=== PATIENT | male | born 1965 | race American Indian/Alaskan Native ===

== ENCOUNTER 2019-07-21 09:27 | Emergency (ER) | payer BC ==
[2019-07-21] MEDS ORDERED: BUTALB/ACETAMINOPHEN/CAFFEINE TAB PO ONE (11:49)
[2019-07-21] MEDS ORDERED: predniSONE 20 MG TAB PO ONE (11:49)
--- NOTE | 2019-07-21 11:56 | Emergency Department Report ---
ED General Adult HPI - General Chief complaint: Headache Stated complaint: HEADACHE Time Seen by Provider: 07/21/19 11:17 Source: patient Mode of arrival: Ambulatory Limitations: No Limitations - History of Present Illness Initial comments: This is a 54-year-old male with no prior medical history presents the ED complaining of intermittent headaches for the past 2 weeks. Patient states that he did notice today here that his blood pressure was elevated. Patient states he regularly does not check his blood pressure so he is unsure. Patient is also stating that he takes Aleve for the headache which resolves it for couple of hours and it comes back. Patient denies any head injury. Patient does state he is under a lot more stress with work and usually works in a warehouse. He denies blurred vision, nausea vomiting, abdominal pain chest pain shortness of breath or any other symptoms - Related Data Previous Rx's Medication Instructions Recorded Last Taken Type Butalb/Acetamin/Caff 50-325-40 2 tab PO TID #30 tablet 07/21/19 Unknown Rx [Fioricet 50-325-40] Allergies Allergy/AdvReac Type Severity Reaction Status Date / Time No Known Allergies Allergy Unverified 07/21/19 09:28 ED Review of Systems ROS: Stated complaint: HEADACHE Other details as noted in HPI Comment: All other systems reviewed and negative ED Past Medical Hx - Past Medical History Previous Medical History?: No - Surgical History Past Surgical History?: No - Social History Smoking Status: Current Every Day Smoker Substance Use Type: Alcohol - Medications Home Medications: Home Medications Medication Instructions Recorded Confirmed Last Taken Type Butalb/Acetamin/Caff 50-325-40 2 tab PO TID #30 tablet 07/21/19 Unknown Rx [Fioricet 50-325-40] ED Physical Exam - General Limitations: No Limitations General appearance: alert, in no apparent distress - Head Head exam: Present: atraumatic, normocephalic - Eye Eye exam: Present: normal appearance, PERRL Pupils: Present: normal accommodation - ENT ENT exam: Present: mucous membranes moist - Neck Neck exam: Present: normal inspection - Respiratory Respiratory exam: Present: normal lung sounds bilaterally. Absent: respiratory distress, wheezes - Cardiovascular Cardiovascular Exam: Present: regular rate, normal rhythm. Absent: systolic murmur, diastolic murmur, rubs, gallop - GI/Abdominal GI/Abdominal exam: Present: soft, normal bowel sounds - Rectal Rectal exam: Present: deferred - Extremities Exam Extremities exam: Present: normal inspection - Back Exam Back exam: Present: normal inspection - Neurological Exam Neurological exam: Present: alert, oriented X3, CN II-XII intact, normal gait - Expanded Neurological Exam Expanded Patient oriented to: Present: person, place, time Speech: Present: fluid speech Cerebellar function: Finger to Nose: Normal Motor strength exam: RUE: 5, LUE: 5, RLE: 5, LLE: 5 Best Eye Response ([place]): (4) open spontaneously Best Motor Response ([place]): (6) obeys commands Best Verbal Response ([place]): (5) oriented [place] Total: 15 - Psychiatric Psychiatric exam: Present: normal affect, normal mood - Skin Skin exam: Present: warm, dry, intact, normal color. Absent: rash ED Course Vital Signs 07/21/19 07/21/19 07/21/19 09:30 09:31 11:45 Temperature 97.6 F 97.6 F Pulse Rate 84 76 Respiratory 18 18 18 Rate Blood Pressure 145/92 145/92 O2 Sat by Pulse 99 100 99 Oximetry ED Medical Decision Making - Medical Decision Making 54-year-old male who presents with intermittent headache most likely secondary to elevated blood pressure. Patient states that he does eat really bad and needs to cut out his bad eating. I discussed with patient to follow-up with a primary care physician for blood pressure management. Fioricet given for headache. Discussed with patient to increase his hydration to 8 to 10 glasses of water per day. Critical care attestation.: If time is entered above; I have spent that time in minutes in the direct care of this critically ill patient, excluding procedure time. ED Disposition Clinical Impression: Acute headache, Elevated blood pressure reading without diagnosis of hypertension Disposition: DC-01 TO HOME OR SELFCARE Is pt being admited?: No Does the pt Need Aspirin: No Condition: Stable Instructions: Acute Headache (ED), Tension Headache (ED) Additional Instructions: Make sure to follow up with the primary care physician as discussed. Take all your medications as you've been prescribed. If you have any worsening symptoms or develop new symptoms please return to ED immediately. Prescriptions: Butalb/Acetamin/Caff 50-325-40 [Fioricet 50-325-40] 2 tab PO TID #30 tablet Referrals: PRIMARY CARE, [Primary Care Provider] - 3-5 Days KARIN WESTBROOK MD [Staff Physician] - 3-5 Days [facility] [Outside] - 3-5 Days [facility] [Outside] - 3-5 Days [facility] [Outside] - 3-5 Days Forms: Work/School Release Form(ED) Time of Disposition: 12:24
[2019-07-21 13:09] VITALS: BP 130/93
== END 2019-07-21 12:56 | disposition home or self-care (01) ==
LOC: ED 09:27
DX: R51 Headache (principal); R03.0 Elevated blood-pressure reading, without diagnosis of hypertension; F17.200 Nicotine dependence, unspecified, uncomplicated; Z79.899 Other long term (current) drug therapy
CPT/HCPCS: 99282; J7512